=== PATIENT | female | born 1995 | race African-American/Black ===

== ENCOUNTER 2019-06-03 09:52 | Emergency (ER) | payer OTHER ==
[2019-06-03] MEDS ORDERED: SODIUM CHLORIDE 1,000 ML IV STA (10:09)
[2019-06-03 10:16] VITALS: BP 120/75; PULSE 89; TEMP 97.6; BMI 27.4
[2019-06-03] MEDS ORDERED: LORazepam 2 MG/ML SDV VIAL ONE (10:30)
[2019-06-03] MEDS ORDERED: levETIRAcetam 500 MG/5 ML INJECTION VIAL IVPB STA (10:42)
--- NOTE | 2019-06-03 11:21 | PDOC ---
History of Present Illness - General Chief Complaint: Seizure Stated Complaint: SEIZURE Time Seen by Provider: 06/03/19 10:08 History Source: Patient, Parent(s) (Mother) Exam Limitations: No Limitations - History of Present Illness Initial Comments: Pt is a 23 yo F, with PMH of uncontrolled epilepsy (started 1 year ago), who presents via EMS with 2 seizures this AM. Pt had first seizure at 5 am, and another around 9 am, both with LOC and tonic-clonic activity and lasting a few minutes. Pt signed RMA when EMS arrived after the first seizure, but decided to come to the ED after the second seizure hours later. Both seizures resolved without medication before EMS arrived. Pt denies any recent fevers/chills, vision changes, chest pain, palpitations, SOB, nausea/vomiting, abdominal pain, urinary symptoms, diarrhea/constipation, or leg swelling. Pt saw neurology (Dr. Stewart) about 1 year ago, but wanted a second opinion. Her first seizure was 1 year ago, and had another seizure 2 months ago. Pt has an appointment set-up with Dr. Deleon in 2 weeks, but has not seen him yet or started any AEDs. Both were ppt by periods of stress/low sleep and associated with prodrome of headache. Pt denies supplements/caffeine use. Allergies: NKDA PCP: Leon Social: Pt denies any cigarette, alcohol, or drug use. Pt denies any recent travel or sick contacts. Surgical: no relevant history. Family: no relevant history. 06/03/19 11:21 Past History - Travel Traveled outside of the country in the last 30 days: No Close contact w/someone who was outside of country & ill: No - Past Medical History Allergies/Adverse Reactions: Allergies Allergy/AdvReac Type Severity Reaction Status Date / Time No Known Drug Allergies Allergy Verified 06/03/19 10:04 Home Medications: Ambulatory Orders levETIRAcetam [Keppra -] 500 mg PO BID 15 Days #30 tablet 06/03/19 COPD: No Seizures: Yes (NON COMPLAINT WITH MEDS) - Suicide/Smoking/Psychosocial Hx Smoking History: Never smoked Have you smoked in the past 12 months: No Information on smoking cessation initiated: No Hx Alcohol Use: No Drug/Substance Use Hx: No Review of Systems - Review of Systems Able to Perform ROS?: Yes Is the patient limited Maori proficient: No Constitutional: Yes: Weight Stable. No: Chills, Diaphoresis, Fever, Loss of Appetite, Malaise, Weakness HEENTM: No: Blurred Vision, Double Vision, Nose Congestion, Throat Pain, Throat Swelling, Difficulty Swallowing Respiratory: No: Cough, Shortness of Breath Cardiac (ROS): Yes: Syncope. No: Chest Pain, Irregular Heart Rate, Lightheadedness, Palpitations ABD/GI: No: Constipated, Diarrhea, Nausea, Poor Appetite, Poor Fluid Intake, Vomiting : No: Burning, Dysuria, Frequency, Pain, Urgency Musculoskeletal: No: Back Pain, Joint Pain, Muscle Pain, Muscle Weakness Integumentary: No: Rash Neurological: Yes: Headache, Seizure. No: Numbness, Paresthesia, Tingling, Weakness, Unsteady Gait, Dizziness Psychiatric: No: Sleep Pattern Change, Change in Appetite Endocrine: No: Increased Urine, Change in Weight Hematologic/Lymphatic: No: Anemia, Blood Clots, Easy Bleeding, Easy Bruising All Other Systems: Reviewed and Negative *Physical Exam - Vital Signs Last Vital Signs Temp Pulse Resp BP Pulse Ox 97.6 F 89 18 120/75 100 06/03/19 09:57 06/03/19 09:57 06/03/19 09:57 06/03/19 09:57 06/03/19 09:57 - Physical Exam Comments: Vitals stable, pt afebrile. Pt in NAD, normal body habitus. Pt alert and oriented x3. Responding to all questions appropriately at this time with spontaneous eye opening. 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 No midline spinal tenderness, step-offs, or crepitus. Head normocephalic, atraumatic. Eyes PERRLA, EOMI. +tongue biting/abrasions. Oropharynx without erythema or exudates, no LAD b/l. No nasal congestion, hearing intact. Clear heart sounds, S1/S2, no JVD, b/l pedal edema, or heart murmur. Clear lung sounds, no respiratory distress, wheezes, crackles, or accessory muscle use. No abdominal or CVA tenderness to palpation, no rebound, no guarding. Abdomen soft, non-distended, and with normoactive bowel sounds. Skin without jaundice or rash. 06/03/19 10:49 06/03/19 12:49 ED Treatment Course - LABORATORY CBC & Chemistry Diagram: 06/03/19 11:15 06/03/19 11:15 - ADDITIONAL ORDERS Additional order review: Laboratory Results 06/03/19 10:24 POC Glucometer 89 06/03/19 10:24 POC Glucometer 89 Medical Decision Making - Medical Decision Making Pt was seen at bedside, also will be seen by attending Dr. River. Pt presenting via EMS for 2 seizures this AM. Pt has not followed-up with neurology or been on AEDs. Pt was seen previously at [facility]. During pt interview, pt had possible focal seizure, in which she stared straight ahead and started speaking in word salad. This episode lasted about 15 seconds and resolved without medication. There was no nystagmus/saccade, shaking , or LOC at this time. Pt had following post-ictal period with mild confusion and sleepiness. Fingerstick glucose was 85. Due to continued sz-like activity and post-ictal periods, we will work-up with labs and non-contrast head CT. Ordered CBC, CMP, UA, serum , ECG. Pending test will obtain non-contrast head CT. ECG: NSR, intervals WNL (HR 73, MS 176, QRS 82, QTc 409). No TWIs or significant ST segment changes. No prior ECG for comparison. 06/03/19 10:49 CBC: anemia, not at level requiring transfusion -- can follow with PCP CMP WNL UA: trace ketones negative Pt taken for non-con head CT scan. 06/03/19 12:51 CT head negative for acute pathology or masses. Spoke with Dr. Johnson, who will come to see the pt in the ER. Consult order placed. 06/03/19 14:[address] Johnson, who will come to see the pt when done with clinic, about 15 minutes. 06/03/19 16:29 Dr. Johsnon saw pt, agrees with outpatient plan with Keppra 500 mg PO BID. Pt can f/u in clinic with Dr. Johnson. Strict return precautions provided with pt understanding. 06/03/19 16:48 *DC/Admit/Observation/Transfer Diagnosis at time of Disposition: Seizure disorder - Discharge Dispostion Disposition: HOME Condition at time of disposition: Improved Decision to Admit order: No - Prescriptions Prescriptions: levETIRAcetam [Keppra -] 500 mg PO BID 15 Days #30 tablet - Referrals Referrals: Lisa Quintero MD [Primary Care Provider] - Teddy Johnson MD [Staff Physician] - - Patient Instructions Printed Discharge Instructions: DI for Seizure Disorder -- Adult Additional Instructions: You were seen in the ER today for seizures. The results of your labs and imaging today were normal. Please follow-up with your primary care doctor and neurology (Dr. Johnson) within 1-2 days to discuss your visit and make sure your symptoms have improved. Please return to the ER if you have any worsening pain, development of fevers or chills, loss of consciousness, inability to tolerate food or fluids, or any other concerns. I have sent medications to your pharmacy. Please take these medications as prescribed. - Post Discharge Activity
[2019-06-03 11:27] LABS: BASO % 0.6 % (0-2.0); EOS % 0.1 % (0-4.5); HEMATOCRIT 29.8 % (32.4-45.2); HEMOGLOBIN 9.5 GM/dL (10.7-15.3); LYMPH % 10.1 % (8-40); MEAN CELL VOLUME 84.3 fl (80-96); MEAN PLT VOLUME 7.6 fl (7.5-11.1); MONO % 8.5 % (3.8-10.2); NEUT % 80.7 % (42.8-82.8); PLATELET COUNT 290 K/MM3 (134-434); RBC 3.53 M/mm3 (3.60-5.2); RDW 15.4 % (11.6-15.6); WHITE BLOOD COUNT 8.8 K/mm3 (4.0-10.0)
[2019-06-03 11:40] LABS: EPI CELLS 0.4 /HPF (0-5/HPF); HYALINE CASTS 2 /lpf (0-8); URINE APPEARANCE CLOUDY; URINE BACTERIA 5.7 /hpf (NEGATIVE); URINE BILIRUBIN NEGATIVE (NEGATIVE); URINE COLOR YELLOW; URINE GLUCOSE (UA) NEGATIVE (NEGATIVE); URINE KETONE TRACE (NEGATIVE); URINE LEUK ESTERASE NEGATIVE (NEGATIVE); URINE NITRITE NEGATIVE (NEGATIVE); URINE PROTEIN NEGATIVE (NEGATIVE); URINE RBC 1 /hpf (0-4); URINE UROBILINOGEN 0.2 mg/dL (0.2-1.0); URINE WBC 0 /hpf (0-5)
[2019-06-03 11:54] LABS: ALBUMIN 3.5 g/dl (3.4-5.0); BILIRUBIN,TOTAL 0.2 mg/dL (0.2-1); BLOOD UREA NITROGEN 9.1 mg/dL (7-18); CALCIUM 8.7 mg/dL (8.5-10.1); CREATININE 0.9 mg/dL (0.55-1.3); POTASSIUM 4.3 mmol/L (3.5-5.1); TOT PROT 6.8 g/dl (6.4-8.2)
--- NOTE | 2019-06-03 12:08 | PDOC ---
Documentation entered by Marina Bowie SCRIBE, acting as scribe for Roberto River MD. Roberto River MD: This documentation has been prepared by the ricibe, Marina Bowie SCRIBE, under my direction and personally reviewed by me in its entirety. I confirm that the documentation accurately reflects all work, treatment, procedures, and medical decision making performed by me. Attending Attestation - Resident Resident Name: Yanet Xavier - ED Attending Attestation I have performed the following: I have examined & evaluated the patient, The case was reviewed & discussed with the resident, I agree w/resident's findings & plan, Exceptions are as noted - HPI HPI: 06/03/19 11:40 The patient is a 23-year-old female with a past medical history significant for seizures presents to the emergency department s/p 2 seizure episodes. Around 5: 30-6:00 am today, the patient had a seizure episode witnessed by her brother, sister, and father. EMS was called. The mother reports EMS worked the patient up , however, the patient RMA'd and refused to be transported to the ER. The patient reports urinary incontinence, and tongue biting denies vision changes, headache. 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 The mom reports the episode lasted for about 2-3 minutes. EMS reports on arrival the patient was in a postictal state. The patient reports tongue biting, denies urinary/bowel incontinence, vision changes, fever, chills. The patient reports having a headache, currently, the pain is mild. The mother reports the patient's first seizure episode was about a year ago. The patient was seen at [facility] ER, from where she was referred to Dr. Stewart. The patient was seen at Neurologist's office, was prescribed medication but never took it as she thought it was just due to stress. Pt had anothe rseizure around 2 months ago. The patient was seen at [place] [facility] and was referred to follow up with Dr. Deleon. The family reports booking an appointment on the of this month. The family reports the patient doesn't sleep well during the night secondary to schoolwork. Denies fever, chills, cough , chest pain, back pain, neck pain, nausea, vomiting. LMP: Beginning of May. Allergies: NKDA Social history: Patient is a student, currently on Summer break. 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 Denies the use of alcohol, tobacco or recreational drugs. - Physicial Exam PE: 06/03/19 12:01 GENERAL: The patient is somnolent but arousable to voice, Nontoxic - in no acute distress. HEAD: Normocephalic, atraumatic. EYES: extraocular movements intact, sclera anicteric, conjunctiva clear. ENT: Normal voice, Moist mucous membranes. NECK: Normal range of motion, supple LUNGS: Breath sounds equal, clear to auscultation bilaterally. No wheezes, no rhonchi, no rales. HEART: Regular rate and rhythm, normal S1 and S2 without murmur, rub or gallop. ABDOMEN: Soft, nontender, No guarding, no rebound. No CVA tenderness EXTREMITIES: Normal range of motion, no edema. NEUROLOGICAL: No facial assymetry, Normal speech, moving all 4 extension spontaneously and symmetrically PSYCH: Normal mood, normal affect. SKIN: Warm, Dry, normal turgor, NEURO: Cranial nerves: Cranial nerves II through XII are intact Motor: The upper extremities are 5 over 5 in all muscle groups. The lower extremities are 5 over 5 in all muscle groups. Negative pronator drift Sensation: Sensation is intact to light touch throughout. romberg negative Cerebellar: Eryeje-yvvues-bqhe is normal in both upper extremities. Heel-knee- fernandes is normal in both lower extremities. rapid alternating movements are normal. - Medical Decision Making 06/03/19 12:01 suspect unreated seizures - possible threshold decrased by decrased sleeping recently will load with keppra will obtain blood work/ua to r/o metabolic derangeent, occult infection ekg to screen for arrytmia will dw neurology regarding dispo will continue to monitor 06/03/19 12:03 06/03/19 17:03 dsicussed with neuro will start the pt on keppra 500BID and have pt fu with neuro as outpatient reutnr precuations were disucssed Heart Score/ECG Review - ECG Impressions Comment:: 06/03/19 12:03 Twelve-lead EKG was performed and reviewed by me. There is normal sinus rhythm with a normal rate. rate of 73 The axis is normal. The intervals are normal. There is normal R wave progression There are no ST or T wave abnormalities. Impression: Normal twelve-lead EKG
[2019-06-03 12:21] LABS: URINE CRYSTALS URIC ACID=2+ /hpf
--- NOTE | 2019-06-03 14:01 | EKG ---
Test Reason : Blood Pressure : / mmHG Vent. Rate : 073 BPM Atrial Rate : 073 BPM P-R Int : 176 ms QRS Dur : 082 ms QT Int : 372 ms P-R-T Axes : 051 015 010 degrees QTc Int : 409 ms NORMAL SINUS RHYTHM WITH SINUS ARRHYTHMIA NO PREVIOUS ECGS AVAILABLE Confirmed by TL ROCA MD ([id number]) on 06/03/2019 2:01:09 PM Referred By: Confirmed By:TL ROCA MD
--- NOTE | 2019-06-03 16:57 | CON.NEURO ---
Consult - Alcohol/Substance Use Hx Alcohol Use: No - Smoking History Smoking history: Never smoked Have you smoked in the past 12 months: No Home Medications - Allergies Allergies/Adverse Reactions: Allergies Allergy/AdvReac Type Severity Reaction Status Date / Time No Known Drug Allergies Allergy Verified 06/03/19 10:04 - Home Medications Home Medications: Ambulatory Orders levETIRAcetam [Keppra -] 500 mg PO BID 15 Days #30 tablet 06/03/19 Physical Exam-Neuro Vital Signs: Vital Signs Temperature 97.6 F 06/03/19 09:57 Pulse Rate 89 06/03/19 09:57 Respiratory Rate 18 06/03/19 09:57 Blood Pressure 120/75 06/03/19 09:57 O2 Sat by Pulse Oximetry (%) 100 06/03/19 09:57 Labs: CBC, BMP 06/03/19 11:15 06/03/19 11:15 Assessment/Plan cc Four episode of seizure since May 2018 HPI 23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 Patient had two episode of seizure . Both lasting few minute with tonic clonic seizure. patient was treated with keppra, blood test and ct head is noraml She has recovered copletely. Patient denies any head trauma, fever or any focal enurological symptoms. There is no aura associated with these episodes. PMH as above Social: Pt denies any cigarette, alcohol, or drug use. Pt denies any recent travel or sick contacts. Surgical: no relevant history. Family: no relevant history. 0 Allergies/Adverse Reactions: Allergies Allergy/AdvReac Type Severity Reaction Status Date / Time No Known Drug Allergies Allergy Verified 06/03/19 10:04 Home Medications: NONE ROS,FH reviewed in chart, there is no family history of seizure Neurological examination Alert oriented x 3, neck is supple afebrile eomi, pupils reacive no face asymmetry, VF normal by confrontation 5/5 all ext, sensation and reflex is normal ct head is normal Assessment/Plan Primary generalized epilepsy, ct head , neuro exam and lab work up negative, no history of drug abuse. suspect TEJA Plan: seizure precautions discussed in detail including driving issue - keppra 500 mg po bid - mri of brain and eeg outpatient Thanking you so much Teddy Johnson MD
== END 2019-06-03 17:02 | disposition home or self-care (01) ==
LOC: JER 09:52
PROC: 3E0337Z Introduction of Electrolytic and Water Balance Substance into Peripheral Vein, Percutaneous Approach (ICD-10-PCS; principal; 2019-06-03)
PROC: 3E033GC Introduction of Other Therapeutic Substance into Peripheral Vein, Percutaneous Approach (ICD-10-PCS; 2019-06-03)
DX: G40.909 Epilepsy, unspecified, not intractable, without status epilepticus (principal); Z91.14 Patient's other noncompliance with medication regimen
CPT/HCPCS: 36415; 70450-TC; 80053; 81003; 82962; 84703; 85025; 93005; 93010; 99283-25; J7030

== ENCOUNTER 2024-08-04 18:35 | Emergency (ER) | payer OTHER ==
[2024-08-04 18:51] VITALS: BP 111/78; PULSE 85; RESP 18; TEMP 98.6; BMI 28.3
[2024-08-04 20:08] LABS: BASO % 1.4 % (0-2.0); EOS % 3.3 % (0-4.5); HEMATOCRIT 35.2 % (32.4-45.2); HEMOGLOBIN 11.4 GM/dL (10.7-15.3); LYMPH % 37.3 % (8-40); MCH 28.8 pg (25.7-33.7); MCHC 32.3 g/dl (32.0-36.0); MEAN CELL VOLUME 89.1 fl (80-96); MEAN PLT VOLUME 6.8 fl (7.5-11.1); MONO % 9.8 % (3.8-10.2); NEUT % 48.2 % (42.8-82.8); PLATELET COUNT 331 10^3/uL (134-434); RBC 3.95 M/mm3 (3.60-5.2); RDW 14.5 % (11.6-15.6); WHITE BLOOD COUNT 4.6 K/mm3 (4.0-10.0)
[2024-08-04] MEDS: MAG HYDROX/ALH/SMC/DPHA/LIDO 240 ML MOUTHWASH MM ONE (20:24)
[2024-08-04 20:27] LABS: POTASSIUM 3.9 mmol/L (3.5-5.1)
[2024-08-04 20:30] LABS: CALCIUM 9.8 mg/dL (8.5-10.1)
[2024-08-04 20:31] LABS: BLOOD UREA NITROGEN 10.1 mg/dL (7-18)
[2024-08-04 20:33] LABS: CREATININE 0.8 mg/dL (0.55-1.3)
[2024-08-04 20:36] LABS: BILIRUBIN,TOTAL 0.7 mg/dL (0.2-1); TOT PROT 7.6 g/dl (6.4-8.2)
[2024-08-04 21:28] LABS: HIV INTERPRETATION NEGATIVE (NEGATIVE)
== END 2024-08-04 21:00 | disposition home or self-care (01) ==
LOC: JER 18:35
DX: K13.70 Unspecified lesions of oral mucosa (principal)
CPT/HCPCS: 36415; 80053; 80175; 80177; 85025; 86803; 87389; 99283-25